=== PATIENT | male | born 1985 | race Caucasian/White ===

== ENCOUNTER 2017-06-03 17:24 | Emergency (ER) | payer OTHER ==
[2017-06-03 17:57] LABS: CHLORIDE,CL 104 mmol/L (98-107); SODIUM,NA 139 mmol/L (136-145)
[2017-06-03] MEDS ORDERED: Ondansetron 4 MG Tab.DIS PO ONE (18:16)
--- NOTE | 2017-06-03 18:16 | EDM.PDOC ---
ED HPI GENERAL MEDICAL PROBLEM - General Chief Complaint: General Stated Complaint: fever, chills, runny nose, dizziness, aches Time Seen by Provider: 06/03/17 18:06 Source of Information: Reports: Patient History Limitations: Reports: No Limitations - History of Present Illness INITIAL COMMENTS - FREE TEXT/NARRATIVE: One day history of fever/chills, nausea, mild loose stools, sore throat, light- headed. Mild runny nose. No vomiting. Exposed to strep at home last week. Denies chronic health problems/prescription medications. Onset: Gradual Onset Date: 06/03/17 Generalized Pain Score (Numeric/FACES): 3 - Related Data Allergies Allergy/AdvReac Type Severity Reaction Status Date / Time No Known Allergies Allergy Verified 06/03/17 17:25 Home Meds: Home Meds Ibuprofen [Advil] 400 mg PO Q6H PRN 06/03/17 [History] Penicillin V Potassium 500 mg PO BID #14 tablet 06/03/17 [Rx] Past Medical History - Past Health History Medical/Surgical History: Denies Medical/Surgical History Social & Family History - Tobacco Use Smoking Status *Q: Former Smoker Years of Tobacco use: 7 Packs/Tins Daily: 1 Used Tobacco, but Quit: Yes Month Tobacco Last Used: 2009 - Caffeine Use Caffeine Use: Reports: Soda - Recreational Drug Use Recreational Drug Use: No ED ROS GENERAL - Review of Systems Review Of Systems: See Below Constitutional: Reports: Fever, Chills, Malaise, Fatigue, Decreased Appetite. Denies: Night Sweats, Diaphoresis HEENT: Reports: Rhinitis, Throat Pain. Denies: Ear Pain, Eye Discharge, Eye Pain, Sinus Problem, Throat Swelling, Vertigo, Vision Change Respiratory: Reports: No Symptoms Cardiovascular: Reports: No Symptoms Endocrine: Reports: No Symptoms GI/Abdominal: Reports: Diarrhea, Decreased Appetite, Nausea. Denies: Abdominal Pain, Black Stool, Bloody Stool, Constipation, Difficulty Swallowing, Distension , Hematemesis, Hematochezia, Vomiting : Reports: No Symptoms Musculoskeletal: Reports: Other (generalized aches) Skin: Reports: No Symptoms Neurological: Reports: Dizziness, Headache. Denies: Numbness, Paresthesia, Trouble Speaking, Weakness, Change in Speech, Gait Disturbance Psychiatric: Reports: No Symptoms Hematologic/Lymphatic: Denies: Swollen Glands ED EXAM, GENERAL - Physical Exam Exam: See Below Exam Limited By: No Limitations General Appearance: Alert, WD/WN, Mild Distress Eye Exam: Bilateral Eye: Conjunctival Injection (mild), EOMI (normal), PERRL Ears: Normal External Exam, Normal Canal, Hearing Grossly Normal, Normal TMs Nose: Normal Inspection. No: Nasal Drainage Throat/Mouth: Normal Lips, Normal Teeth, Normal Gums, Normal Voice, No Airway Compromise, Other (reddened throat, no exudates) Head: Atraumatic, Normocephalic Neck: Normal Inspection, Supple, Non-Tender, Full Range of Motion. No: Lymphadenopathy (L), Lymphadenopathy (R) Respiratory/Chest: No Respiratory Distress, Lungs Clear, Normal Breath Sounds, No Accessory Muscle Use Cardiovascular: No Murmur, Tachycardia Peripheral Pulses: 2+: Radial (L), Radial (R) GI/Abdominal: Normal Bowel Sounds, Soft, Non-Tender, No Distention (Male) Exam: Deferred Rectal (Males) Exam: Deferred Back Exam: Normal Inspection Extremities: Normal Inspection, Normal Capillary Refill Neurological: Alert, Oriented, Normal Cognition, Normal Gait, No Motor/Sensory Deficits Psychiatric: Normal Affect, Normal Mood Skin Exam: Warm, Intact, Normal Color Course - Vital Signs Last Recorded V/S: Last Vital Signs Temp 36.6 C 06/03/17 17:25 Pulse 118 H 06/03/17 17:25 Resp 20 06/03/17 17:25 BP 114/75 06/03/17 17:25 Pulse Ox 97 06/03/17 17:25 - Orders/Labs/Meds Labs: Laboratory Tests 06/03/17 06/03/17 06/03/17 Range/Units 17:40 17:40 17:50 WBC 17.1 H (4.0-10.2) K/uL RBC 5.21 (4.33-5.41) M/uL Hgb 16.0 (13.1-16.8) g/dL Hct 44.9 (39.0-49.0) % MCV 86.2 (84.0-98.0) fL MCH 30.7 (28.2-33.3) pg MCHC 35.6 (31.7-36.0) g/dL RDW 12.6 (11.2-14.1) % Plt Count 216 (150-350) K/uL Neut % (Auto) 89.5 H (45.0-80.0) % Lymph % (Auto) 3.9 L (10.0-50.0) % Butts % (Auto) 5.9 (2.0-14.0) % Eos % (Auto) 0.6 (0.0-5.0) % Baso % (Auto) 0.1 (0.0-2.0) % Neut # (Auto) 15.31 H (1.40-7.00) K/uL Lymph # (Auto) 0.67 (0.50-3.50) K/uL Butts # (Auto) 1.01 H (0.00-1.00) K/uL Eos # (Auto) 0.11 (0.00-0.50) K/uL Baso # (Auto) 0.02 (0.00-0.20) K/uL Sodium 139 (136-145) mmol/L Potassium 4.0 (3.5-5.1) mmol/L Chloride 104 (98-107) mmol/L Carbon Dioxide 23.4 (21.0-32.0) mmol/L BUN 17 (7-18) mg/dL Creatinine 0.97 (0.51-1.17) mg/dL Est Cr Clr Drug Dosing 121.11 mL/min Estimated GFR (MDRD) > 60 mL/min Glucose 108 H (74-106) mg/dL Calcium 9.3 (8.5-10.1) mg/dL Total Bilirubin 0.6 (0.2-1.0) mg/dL AST 18 (15-37) U/L ALT 74 (12-78) U/L Alkaline Phosphatase 96 (46-116) IU/L Total Protein 7.8 (6.4-8.2) g/dL Albumin 4.0 (3.4-5.0) g/dL Specimen Type Urincc Urine Color Yellow Urine Appearance Clear Urine pH 7.0 (5.0-9.0) Ur Specific [place] 1.025 (1.005-1.030) Urine Protein Negative (NEGATIVE) mg/dL Urine Glucose (UA) Negative (NEGATIVE) mg/dL Urine Ketones Negative (NEGATIVE) mg/dL Urine Occult Blood Negative (NEGATIVE) Urine Nitrite Negative (NEGATIVE) Urine Bilirubin Negative (NEGATIVE) Urine Urobilinogen 0.2 (0.2-1.0) E.U./dL Ur Leukocyte Esterase Negative (NEGATIVE) Urine RBC Not seen /HPF Urine WBC Not seen /HPF Ur Epithelial Cells Not seen /LPF Urine Bacteria Not seen (NONE TO FEW) /HPF Meds: Medications Discontinued Medications Generic Name Dose Route Start Last Admin Trade Name [id number] PRN Reason Stop Dose Admin Meclizine HCl 25 mg 06/03/17 18:17 06/03/17 18:29 Antivert PO 06/03/17 18:18 25 mg ONETIME ONE Administration Ondansetron HCl 4 mg 06/03/17 18:16 06/03/17 18:29 Zofran Odt PO 06/03/17 18:17 4 mg ONETIME ONE Administration Oxycodone/Acetaminophen 1 tab 06/03/17 18:18 06/03/17 18:29 Percocet 325-5 Mg PO 06/03/17 18:19 1 tab ONETIME ONE Administration - Re-Assessments/Exams Free Text/Narrative Re-Assessment/Exam: 06/03/17 18:44 Influenza negative. Strep + Elevated WBC noted. UA and Chem overall unremarkable. Patient given Zofran and Meclizine in ER. Take home bottle of Augmentin 500mg given to use TID for 6 doses. Rx for PCN given to patient to fill for rest of antibiotic course. He lives in [place] and may end up returning home due to illness and get Rx filled there. Normal course of Strep throat discussed. Patient given opportunity to ask questions prior to discharge. Work slip provided. Departure - Departure Time of Disposition: 18:12 Disposition: Home, Self-Care 01 Condition: Good Clinical Impression: Strep throat - Discharge Information Prescriptions: Penicillin V Potassium 500 mg PO BID #14 tablet Instructions: Strep Throat, [id number] Referrals: PCP,Unknown [Primary Care Provider] - Forms: ED Department Discharge, ED Return to Work/School Form Additional Instructions: Rest, stay well hydrated! Tylenol or Ibuprofen or Aleve for pain as needed. Follow up as needed and get rechecked if you have worsening problems.
[2017-06-03] MEDS ORDERED: Meclizine 25 MG Tab PO ONE (18:17)
[2017-06-03] MEDS ORDERED: Acetaminophen/oxyCODONE 325-5 MG Tab PO ONE (18:18)
== END 2017-06-03 18:40 | disposition home or self-care (01) ==
LOC: LL.ED 17:24
DX: J02.0 Streptococcal pharyngitis (principal); Z87.891 Personal history of nicotine dependence
CPT/HCPCS: 36415; 80053; 81001; 85025; 87430; 87804; 99283; A9270